=== PATIENT | male | born 1970 ===

== ENCOUNTER 2016-06-16 06:51 | Emergency (ER) | payer SELFPAY ==
[2016-06-16 06:51] VITALS: BMI 28.7
[2016-06-16] MEDS ORDERED: Sodium Chloride 0.9% 1,000 ML IV ONE (07:13)
--- NOTE | 2016-06-16 07:16 | C.PDOC ---
History Of Present Illness 46 y/o healthy male woke at 5:30 am with dizzy sensation, things spinning in room, with nausea and multiple episodes of vomiting. sensation is worse with movement of head. no prior episodes. no hx head trauma, fever, ear pain, recent illness, no recent travel. denies abdominal pain. Time Seen by Provider: 06/16/16 07:02 Chief Complaint (Nursing): Dizziness/Lightheaded Past Medical History Reviewed: Historical Data, Nursing Documentation, Vital Signs Vital Signs: Last Vital Signs Temp 97.5 F L 06/16/16 10:34 Pulse 71 06/16/16 10:34 Resp 18 06/16/16 10:34 BP 122/76 06/16/16 10:34 Pulse Ox 99 06/17/16 22:08 - Medical History PMH: No Chronic Diseases Denies: Chronic Kidney Disease Surgical History: No Surg Hx Family History: States: Unknown Family Hx - Social History Hx Tobacco Use: No Hx Alcohol Use: Yes (rare socia occasion) Hx Substance Use: No - Immunization History Hx Tetanus Toxoid Vaccination: No Hx Influenza Vaccination: No Hx Pneumococcal Vaccination: No Review Of Systems Constitutional: Positive for: Sweats. Negative for: Fever, Chills Eyes: Negative for: Pain, Vision Change ENT: Negative for: Ear Pain, Ear Discharge Cardiovascular: Negative for: Chest Pain, Palpitations Respiratory: Negative for: Shortness of Breath Gastrointestinal: Positive for: Nausea, Vomiting. Negative for: Abdominal Pain Skin: Negative for: Rash Neurological: Positive for: Dizziness. Negative for: Weakness, Numbness, Headache Physical Exam - Physical Exam Appears: In Acute Distress, Other (retching/vomiting) Skin: Normal Color, Warm, Dry Head: Atraumatic, Normacephalic Eye(s): bilateral: Normal Inspection, PERRL, EOMI (no nystagmus) Ear(s): Bilateral: Normal Nose: Normal Neck: Normal ROM, Supple Chest: Symmetrical, No Deformity, No Tenderness Cardiovascular: Rhythm Regular, No Murmur Respiratory: Normal Breath Sounds, No Rales, No Rhonchi, No Wheezing Gastrointestinal/Abdominal: Bowel Sounds, Soft, No Tenderness Extremity: Normal ROM, No Tenderness, No Swelling Neurological/Psych: Oriented x3, Normal Speech, Normal Cognition, Normal Motor, Normal Sensation ED Course And Treatment - Laboratory Results Result Diagrams: 06/16/16 07:48 06/16/16 07:48 O2 Sat by Pulse Oximetry: 99 - CT Scan/US CT Head CT/US Interpretation: Accession No. : [id number]. Patient Name / ID : ROB FATIMA / [id number]. Exam Date : 06/16/2016 08:09:45 ( Approved ). Study Comment : Sex / Age : M / 46Y. Creator : Иван Reyes MD. Dictator : Иван Reyes MD. Senior Principal Architect : Trap Operator : Иван Reyes MD. Approver2 : Report Date : 06/16/2016 08:59:03. My Comment : . PROCEDURE: CT HEAD WITHOUT CONTRAST. HISTORY: Rule out intracranial hemorrhage. COMPARISON: None available. TECHNIQUE: Axial computed tomography images were obtained through the head/brain without intravenous contrast. Radiation dose: Total exam DLP = 856.44 mGy-cm. This CT exam was performed using one or more of the following dose reduction techniques: Automated exposure control, adjustment of the mA and/or kV according to patient size, and/or use of iterative reconstruction technique. FINDINGS: HEMORRHAGE: No acute parenchymal, subarachnoid or extra-axial hemorrhage. BRAIN: No mass effect or edema. No atrophy or chronic microvascular ischemic changes. Minor vascular calcifications both carotid siphons. VENTRICLES: Unremarkable. No hydrocephalus. CALVARIUM: Unremarkable. PARANASAL SINUSES: Moderate mucosal thickening noted within the ethmoid air complex with slight extension superiorly into the inferior aspect of the frontal sinus. Minor mucosal thickening within the sphenoid sinus more so on within right chamber compared to the left. MASTOID AIR CELLS: Unremarkable as visualized. No inflammatory changes. OTHER FINDINGS: None. IMPRESSION: No acute intracranial hemorrhage. Medical Decision Making Medical Decision Makin46 y/o healthy male with n/v and dizziness that is worse with movement of head. will get labs, head ct, treat with zofran and meclizine and re-evaluate. 955 am pt with decreased dizziness. still mildly present when sitting up. pt had vomited right after receiving 25 mg meclizine, unclear if he vomited up pill. will give small dose meclinzine and re-eval. 1110 am pt feeling much better, no longer dizzy, will d/c with meclizine and f/ u pmd on sunday. pt aware to check glucose again with pmd, Disposition Counseled Patient/Family Regarding: Diagnosis, Need For Followup, Rx Given - Disposition Referrals: Nestor Tomlinson MD [Medical Doctor] - Disposition: HOME/ ROUTINE Disposition Time: 11:11 Condition: IMPROVED Additional Instructions: Please take meclizine every 6 hours if needed. Follow up with your doctor on Sunday. Return to ER for any worsening symptoms. Have your PMD check blood sugar. 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
[2016-06-16] MEDS ORDERED: Sodium Chloride 0.9% 1,000 ML ONE (07:32)
[2016-06-16 08:03] LABS: BASO % 0.3 % (0.0-2.0); EOS # 0.2 K/uL (0.0-0.7); EOS % 2.7 % (0.0-4.0); HEMATOCRIT 45.6 % (35.0-51.0); LYMPH # 2.3 K/uL (1.0-4.3); LYMPH % 27.4 % (20.0-40.0); MEAN CELL VOLUME 85.9 fL (80.0-94.0); MEAN CORPUSCULAR HEMOGLOBIN 28.7 pg (27.0-31.0); MEAN CORPUSCULAR HGB CONC 33.4 g/dL (33.0-37.0); MONO # 0.5 K/uL (0.0-0.8); MONO % 6.3 % (0.0-10.0); NRBC % 0.1 % (0.0-2.0); RED CELL DISTRIBUTION WIDTH 12.3 % (11.5-14.5); WHITE BLOOD COUNT 8.4 K/uL (4.8-10.8)
[2016-06-16 08:20] LABS: BLOOD UREA NITROGEN 15 mg/dL (9-20); CALCIUM 8.5 mg/dl (8.6-10.4); CARBON DIOXIDE 22 mmol/L (22-30); CHLORIDE 98 mmol/L (98-107); GFR AFRICAN-AMERICAN > 60; GLUCOSE,RANDOM 148 mg/dL (75-110); POTASSIUM 3.6 mmol/L (3.6-5.2); SODIUM 137 mmol/L (132-148)
--- NOTE | 2016-06-16 09:00 | CT ---
PROCEDURE: CT HEAD WITHOUT CONTRAST. HISTORY: Rule out intracranial hemorrhage. COMPARISON: None available. TECHNIQUE: Axial computed tomography images were obtained through the head/brain without intravenous contrast. Radiation dose: Total exam DLP = 856.44 mGy-cm. This CT exam was performed using one or more of the following dose reduction techniques: Automated exposure control, adjustment of the mA and/or kV according to patient size, and/or use of iterative reconstruction technique. FINDINGS: HEMORRHAGE: No acute parenchymal, subarachnoid or extra-axial hemorrhage. BRAIN: No mass effect or edema. No atrophy or chronic microvascular ischemic changes. Minor vascular calcifications both carotid siphons. VENTRICLES: Unremarkable. No hydrocephalus. CALVARIUM: Unremarkable. PARANASAL SINUSES: Moderate mucosal thickening noted within the ethmoid air complex with slight extension superiorly into the inferior aspect of the frontal sinus. Minor mucosal thickening within the sphenoid sinus more so on within right chamber compared to the left. MASTOID AIR CELLS: Unremarkable as visualized. No inflammatory changes. OTHER FINDINGS: None. IMPRESSION: No acute intracranial hemorrhage.
[2016-06-16 10:35] VITALS: BP 122/76; PULSE 71; RESP 18; TEMP 97.5
[2016-06-16 11:13] VITALS: O2SAT 99
== END 2016-06-16 11:30 | disposition home or self-care (01) ==
LOC: C.ER 06:51
DX: R42 Dizziness and giddiness (principal)
CPT/HCPCS: 70450; 80048; 85025; 96361; 96374; 96375; 99285; J2405; J2765; J7040